=== PATIENT | female | born 1970 | race Caucasian/White ===

== ENCOUNTER → 2017-06-26 12:09 | Outpatient (CLI) | payer OTHER, SELFPAY ==
[2017-06-26 14:14] LABS: Absolute Lymphocyte Count 1.21 X10^3/ul (0.83-4.51); Absolute Neutrophil Count 4.3 X10^3/uL (2.0-7.7); Basophil% 1.6 % (0-1); Hematocrit 37.4 % (37-47); Hemoglobin 11.8 g/dl (12.0-15.0); Lymphocyte # 1.21 X10^3/ul (4.0); Lymphocyte % 19.5 % (19-41); Mean Corp Hgb Conc 31.6 g/gl (32-36); Mean Corpuscular Hgb 27.3 pg (27.0-32.0); Mean Corpuscular Volume 86.6 fL (81-99); Mean Platelet Vol. 10.6 fl (6.2-12.0); Monocyte% 9.7 % (0-10); Neutrophil # 4.27 X10^3/uL (2.7-7.7); Platelet Count 230 K/mm3 (150-450); RBC Distribution Width CV 15.2 % (11.6-14.6); RBC Distribution Width SD 47.7 fl (35.1-43.9); Red Blood Count 4.32 M/mm3 (4.2-5.4); White Blood Count 6.2 K/mm3 (4.4-11.0)
[2017-06-26 14:17] LABS: POSITIVE COUNT NO; POSITIVE DIFFERENTIAL NO; POSITIVE MORPHOLOGY NO
[2017-06-26 14:24] LABS: AST(SGOT) 20 U/L (15-37); Alanine Aminotransfer ALT/SGPT 36 U/L (13-56); Albumin, Serum 3.9 g/dL (3.2-5.0); Alkaline Phosphatase 75 U/L (45-117); Bilirubin, Direct 0.05 mg/dL (0.00-0.30); Creatinine, Serum 0.74 mg/dL (0.55-1.02); EST Glomerular Filtration Rate 89 mL/min (>60); Est Glom Filt Rate - Afr Amer 107 mL/min (>60); Globulin 3.8 g/dL (2.2-4.2); Protein, Total 7.7 g/dL (6.4-8.2)
== END ==
PROVIDERS: Family Provider Family Medicine; PCP Family Medicine; Visit Provider Internal Medicine Rheumatology
DX: M06.4 Inflammatory polyarthropathy (principal); Z79.899 Other long term (current) drug therapy
CPT/HCPCS: 36415; 80076; 82565; 85025

== ENCOUNTER → 2019-01-08 08:32 | Outpatient (CLI) | payer OTHER, SELFPAY ==
[2019-01-08 10:34] LABS: Hemoglobin A1c 6.3 % (4.2-6.3)
[2019-01-08 10:51] LABS: Cholesterol 187 mg/dL (200); High Density Lipoprotein 32 mg/dL; Magnesium 2.1 mg/dL (1.6-2.6); Thyroid Stim Hormone (TSH) 2.05 uIU/mL (0.358-3.74); Triglycerides 129 mg/dL; Very Low Density Lipoprotein 26 mg/dL (5-40)
== END ==
PROVIDERS: Family Provider Family Medicine; PCP Family Medicine; Referring Provider Family Medicine; Visit Provider Family Medicine
DX: E11.9 Type 2 diabetes mellitus without complications (principal)
CPT/HCPCS: 36415; 80061; 83036; 83735; 84443

== ENCOUNTER → 2019-08-24 | Outpatient (CLI) | payer OTHER, SELFPAY ==
[2019-08-24 09:54] LABS: Erythrocyte Sedimentation Rate 12 mm/hr (0-20)
[2019-08-24 09:56] LABS: Absolute Lymphocyte Count 0.94 X10^3/uL (0.83-4.51); Absolute Neutrophil Count 4.6 X10^3/uL (2.0-7.7); Basophil# 0.08 X10^3/uL; Basophil% 1.3 % (0-1); Hematocrit 35.1 % (37-47); Hemoglobin 10.2 g/dL (12.0-15.0); Lymphocyte # 0.94 X10^3/ul (4.0); Lymphocyte % 15.1 % (19-41); Mean Corp Hgb Conc 29.1 g/dL (32-36); Mean Corpuscular Hgb 24.7 pg (27.0-32.0); Mean Platelet Vol. 10.5 fl (6.2-12.0); Monocyte# 0.53 X10^3/uL; Monocyte% 8.5 % (0-10); NRBC Flagged by Analyzer 0 % (0-5); Neutrophil # 4.57 X10^3/uL (2.7-7.7); Neutrophil % 73.5 % (47-70); POSITIVE MORPHOLOGY YES; Platelet Count 305 K/mm3 (150-450); RBC Distribution Width CV 19.5 % (11.6-14.6); RBC Distribution Width SD 56.3 fl (35.1-43.9); Red Blood Count 4.13 M/mm3 (4.2-5.4); White Blood Count 6.2 K/mm3 (4.4-11.0)
[2019-08-24 09:58] LABS: Differential Indicated SCAN CRITERIA MET
[2019-08-24 10:06] LABS: Anion Gap 4 (5-15); BUN 9 mg/dL (7-18); BUN/Creat Ratio 14.5 RATIO (10-20); Calcium,Total 8.7 mg/dL (8.5-10.1); Chloride 103 mmol/L (98-107); Creatinine, Serum 0.62 mg/dL (0.55-1.02); EST Glomerular Filtration Rate 108 mL/min (>60); Est Glom Filt Rate - Afr Amer 131 mL/min (>60); Glucose 123 mg/dL (74-106); Potassium 4.1 mmol/L (3.5-5.1); Sodium Level 137 mmol/L (136-145)
[2019-08-24 10:56] LABS: Platelet Estimate ADEQUATE (ADEQ)
[2019-08-24 10:57] LABS: Polychromasia RARE; Red Cell Morphology NORM C+C NORMAL (NORM C&C)
[2019-08-24 11:52] LABS: Hemoglobin A1c 6.7 % (3.8-5.6)
== END | disposition home or self-care (01) ==
LOC: MTLAB 08:30
PROVIDERS: PCP Family Medicine; Referring Provider Family Medicine; Visit Provider Family Medicine
DX: E11.9 Type 2 diabetes mellitus without complications (principal); M06.9 Rheumatoid arthritis, unspecified; R53.81 Other malaise; R52 Pain, unspecified
CPT/HCPCS: 36415; 80048; 83036; 85025; 85652

== ENCOUNTER 2020-02-06 08:43 | Emergency (ER) | payer OTHER, SELFPAY ==
[2020-02-06 08:45] VITALS: BP 160/97; PULSE 90; RESP 18; TEMP 36.4; O2SAT 100; BMI 35.2
--- NOTE | 2020-02-06 09:00 | ED.VIS.GEN ---
History of Present Illness Informant: Patient Onset: Days - 5 days Context: Gradual Onset Timing: Continuous Quality: Polyuria and polydipsia Current Severity: Severe Maximum Severity: Severe Worsened by: nothing Relieved by: nothing Associated Symptoms: lightheaded Narrative: 49-year-old female history of type 2 diabetes mellitus and rheumatoid arthritis presents with hyperglycemia. She was out of her oral medications for her type 2 diabetes for 5 days. She got them refilled this morning but she has been checking her blood sugars and they have been consistently over 400 for the last 3 to 4 days. She has polyuria and polydipsia. No fevers nausea vomiting or diarrhea. No abdominal pain. Prior similar symptoms: Yes Recent Illness/Hospitalization: No <John Barron - Last Filed: 02/06/20 10:12> <Segundo Hobson - Last Filed: 02/06/20 10:20> Chief Complaint: Hyperglycemia Past Medical History Prior records reviewed: Yes Past Medical History: - - Type 2 diabetes and rheumatoid arthritis Surgical History: noncontributory Lives: With Family Smoking Status: Former smoker Alcohol: None Drugs: None <John Barron - Last Filed: 02/06/20 10:12> <Segundo Hobson - Last Filed: 02/06/20 10:20> - Allergies and Home Meds Allergies/Adverse Reactions: Allergies amoxicillin Allergy (Verified 02/06/20 08:45) Hives Primary Care Physician: Adilson Jones MD [Primary Care Provider] - Review of Systems All systems negative except as indicated General: Denies: Chills, Fever, Malaise, Subjective, Sweats Eyes: Denies: Visual changes - bilaterally, Diplopia ENT: Denies: Rhinorrhea, Sore throat Cardiovascular: Denies: Chest pain, Palpitations Respiratory: Denies: Dyspnea, Cough, Dyspnea on exertion Gastrointestinal: Denies: Abdominal pain, Nausea, Vomiting, Diarrhea, Constipation, Melena, Hematochezia Genitourinary: Denies: Dysuria, Hematuria, Frequency Musculoskeletal: Denies: Back pain, Swelling, Extremity Pain Skin: Denies: Rash, Abscess, Abrasions, Wounds Neurological: Denies: Headache, Weakness, Parasthesia, Numbness <John Barron - Last Filed: 02/06/20 10:12> Physical Exam Vital Signs/Narrative: Vital Signs Temp Pulse Resp BP Pulse Ox 02/06/20 08:45 97.6 F L 90 18 160/97 H 100 Inital Vital Signs reviewed: Yes General: Well nourished, Well developed, No Acute Distress Head: Normocephalic, Atraumatic Eyes: Perrl, EOMI ENT: Moist mucous membranes, No rhinorrhea Neck: Supple, Nontender Cardiovascular: Regular rate, Regular rhythm, No murmurs Respiratory: No distress, CTA bilaterally, Chest nontender Abdomen: Soft, Nontender, Nondistended, Normal bowel sounds Back: Nontender, Normal Inspection Extremities: Nontender, No edema Skin: Normal color, No rash Neurological: Alert, Oriented x3, Cranial nerves II-XII grossly intact, Normal Strength, Normal Sensation Psychological: Normal affect, Normal Mood <John Barron - Last Filed: 02/06/20 10:12> Vital Signs/Narrative: Vital Signs Temp Pulse Resp BP Pulse Ox 02/06/20 08:45 97.6 F L 90 18 160/97 H 100 <Segundo Hobson - Last Filed: 02/06/20 10:20> Diagnostic/Tx/Re-eval Laboratory Results 02/06/20 02/06/20 09:10 09:10 WBC 6.9 RBC 4.66 Hgb 12.2 Hct 38.8 MCV 83.3 MCH 26.2 L MCHC 31.4 L RDW Std Deviation 43.0 RDW Coeff of Ancelmo 14.6 Plt Count 295 MPV 10.3 Immature Gran % (Auto) 0.700 Neut % (Auto) 78.4 H Lymph % (Auto) 12.2 L Thurston % (Auto) 7.7 Eos % (Auto) 0.0 Baso % (Auto) 1.0 Absolute Neuts (auto) 5.4 Absolute Lymphs (auto) 0.84 Nucleated RBC % 0 Sodium 132 L Potassium 4.2 Chloride 102 Carbon Dioxide 25.0 Anion Gap 5 BUN 6 L Creatinine 0.75 Estim Creat Clear Calc 77.49 Est GFR (MDRD) Af Amer 105 Est GFR (MDRD) Non-Af 87 BUN/Creatinine Ratio 8.0 L Glucose 336 H Calcium 8.3 L - Medical Decision Making Patient was given 2 L of fluids. Blood sugar 336. Normal anion gap. Normal electrolytes. Repeat blood sugar was improved. Patient feeling well. She does have her medication prescriptions that she will fill today. She will be discharged home and advised to call her family doctor tomorrow for follow-up <John Barron - Last Filed: 02/06/20 10:12> - Medical Decision Making Patient seen and examined. She is in no acute distress. Her blood sugar was elevated but she has not been on her medications over the past 4 to 5 days. She does have this at home now. No evidence of DKA. She did receive IV fluids and will be discharged home in stable condition. Warning signs and symptoms which to return to the ED are reviewed. She otherwise has follow-up with her PCP. She understands and is agreeable this plan. All questions were answered. <Segundo Hobson - Last Filed: 02/06/20 10:20> ED Disposition <John Barron - Last Filed: 02/06/20 10:12> <Segundo Hobson - Last Filed: 02/06/20 10:20> - Plan for ED Patient: Disposition: Home or Assisted Living Diagnosis: Hyperglycemia Instructions: ED Diabetic Hyperglycemia Referrals: Adilson Jones MD [Primary Care Provider] -
[2020-02-06 09:17] LABS: Absolute Lymphocyte Count 0.84 X10^3/uL (0.83-4.51); Absolute Neutrophil Count 5.4 X10^3/uL (2.0-7.7); Basophil# 0.07 X10^3/uL; Hematocrit 38.8 % (37-47); Hemoglobin 12.2 g/dL (12.0-15.0); Lymphocyte # 0.84 X10^3/ul (4.0); Lymphocyte % 12.2 % (19-41); Mean Corp Hgb Conc 31.4 g/dL (32-36); Mean Corpuscular Hgb 26.2 pg (27.0-32.0); Mean Corpuscular Volume 83.3 fL (81-99); Mean Platelet Vol. 10.3 fl (6.2-12.0); Monocyte# 0.53 X10^3/uL; Monocyte% 7.7 % (0-10); NRBC Flagged by Analyzer 0 % (0-5); Neutrophil # 5.38 X10^3/uL (2.7-7.7); Neutrophil % 78.4 % (47-70); Platelet Count 295 K/mm3 (150-450); RBC Distribution Width CV 14.6 % (11.6-14.6); Red Blood Count 4.66 M/mm3 (4.2-5.4); White Blood Count 6.9 K/mm3 (4.4-11.0)
[2020-02-06] MEDS: 0.9% Normal Saline 1,000 ML 1000 ML IV (09:17)
[2020-02-06 09:30] LABS: Anion Gap 5 (5-15); BUN 6 mg/dL (7-18); Calcium,Total 8.3 mg/dL (8.5-10.1); Chloride 102 mmol/L (98-107); Creatinine, Serum 0.75 mg/dL (0.55-1.02); EST Glomerular Filtration Rate 87 mL/min (>60); Est Glom Filt Rate - Afr Amer 105 mL/min (>60); Estimated Creatinine Clearance 77.49 ml/min; Glucose 336 mg/dL (74-106); Potassium 4.2 mmol/L (3.5-5.1); Sodium Level 132 mmol/L (136-145)
[2020-02-06 10:22] VITALS: BP 128/67; PULSE 52; RESP 16; O2SAT 98
== END 2020-02-06 10:23 | disposition home or self-care (01) ==
PROVIDERS: Emergency Provider Physician Assistant Medical; PCP Family Medicine
DX: E11.65 Type 2 diabetes mellitus with hyperglycemia (principal); M06.9 Rheumatoid arthritis, unspecified; Z87.891 Personal history of nicotine dependence; Z79.84 Long term (current) use of oral hypoglycemic drugs
CPT/HCPCS: 80048; 85025; 96360; 99283; J7030; A4216

== ENCOUNTER → 2020-02-28 08:43 | Outpatient (CLI) | payer OTHER, SELFPAY ==
[2020-02-06 08:45] VITALS: BMI 35.2
[2020-02-28 09:43] LABS: Absolute Lymphocyte Count 1.02 X10^3/uL (0.83-4.51); Absolute Neutrophil Count 4.4 X10^3/uL (2.0-7.7); Basophil# 0.09 X10^3/uL; Basophil% 1.4 % (0-1); Eosinophil# 0.48 X10^3/uL; Eosinophils% 7.3 % (0-5); Hematocrit 36.4 % (37-47); Hemoglobin 11.2 g/dL (12.0-15.0); Lymphocyte # 1.02 X10^3/ul (4.0); Lymphocyte % 15.5 % (19-41); Mean Corp Hgb Conc 30.8 g/dL (32-36); Mean Corpuscular Hgb 25.8 pg (27.0-32.0); Mean Corpuscular Volume 83.9 fL (81-99); Mean Platelet Vol. 10.3 fl (6.2-12.0); Monocyte% 7.6 % (0-10); NRBC Flagged by Analyzer 0 % (0-5); Neutrophil # 4.42 X10^3/uL (2.7-7.7); Neutrophil % 66.8 % (47-70); POSITIVE MORPHOLOGY YES; Platelet Count 330 K/mm3 (150-450); RBC Distribution Width CV 14.7 % (11.6-14.6); RBC Distribution Width SD 44.5 fl (35.1-43.9); Red Blood Count 4.34 M/mm3 (4.2-5.4); White Blood Count 6.6 K/mm3 (4.4-11.0)
[2020-02-28 09:44] LABS: Differential Indicated SCAN CRITERIA MET
[2020-02-28 09:57] LABS: Anion Gap 7 (5-15); BUN 9 mg/dL (7-18); BUN/Creat Ratio 13.6 RATIO (10-20); Bilirubin, Direct 0.06 mg/dL (0.00-0.30); Calcium,Total 8.8 mg/dL (8.5-10.1); Chloride 100 mmol/L (98-107); Cholesterol 191 mg/dL (200); Creatinine, Serum 0.66 mg/dL (0.55-1.02); EST Glomerular Filtration Rate 100 mL/min (>60); Est Glom Filt Rate - Afr Amer 121 mL/min (>60); Glucose 182 mg/dL (74-106); High Density Lipoprotein 35 mg/dL; Sodium Level 134 mmol/L (136-145); Triglycerides 171 mg/dL; Very Low Density Lipoprotein 34 mg/dL (5-40)
[2020-02-28 10:03] LABS: Hemoglobin A1c 8.2 % (3.8-5.6); Microalbumin,Random Urine < 5.0 mg/L (NO RANGE EST.)
== END ==
PROVIDERS: PCP Family Medicine; Referring Provider Internal Medicine Rheumatology; Visit Provider Internal Medicine Rheumatology
DX: E11.9 Type 2 diabetes mellitus without complications (principal); D64.9 Anemia, unspecified; R79.89 Other specified abnormal findings of blood chemistry
CPT/HCPCS: 36415; 80048; 80061; 82043; 82248; 83036; 85025

== ENCOUNTER → 2020-12-11 | Outpatient (CLI) | payer OTHER, SELFPAY | END | disposition home or self-care (01) | PROVIDERS: PCP Family Medicine; Visit Provider Family Medicine | DX: Z20.822 Contact with and (suspected) exposure to COVID-19 (principal) | CPT/HCPCS: 87635; U0005; U0003 ==

== ENCOUNTER 2021-05-25 08:19 | Outpatient (CLI) | payer OTHER, SELFPAY ==
[2021-05-25 10:37] LABS: Microalbumin,Random Urine < 5.0 mg/L (NO RANGE EST.)
[2021-05-25 10:50] LABS: Anion Gap 8 (5-15); BUN 11 mg/dL (7-18); BUN/Creat Ratio 16.7 RATIO (10-20); Calcium,Total 8.4 mg/dL (8.5-10.1); Chloride 101 mmol/L (98-107); Cholesterol 225 mg/dL (200); Creatinine, Serum 0.66 mg/dL (0.55-1.02); EST Glomerular Filtration Rate 101 mL/min (>60); Est Glom Filt Rate - Afr Amer 122 mL/min (>60); Glucose 185 mg/dL (74-106); High Density Lipoprotein 38 mg/dL; Potassium 3.8 mmol/L (3.5-5.1); Sodium Level 134 mmol/L (136-145); Thyroid Stim Hormone (TSH) 1.96 uIU/mL (0.358-3.74); Triglycerides 177 mg/dL; Very Low Density Lipoprotein 35 mg/dL (5-40)
== END 2021-05-25 23:59 | disposition home or self-care (01) ==
LOC: MTLAB 08:20
PROVIDERS: PCP Family Medicine; Referring Provider Family Medicine; Visit Provider Family Medicine
DX: R63.4 Abnormal weight loss (principal); E11.9 Type 2 diabetes mellitus without complications
CPT/HCPCS: 36415; 80048; 80061; 82043; 82570; 84443